=== PATIENT | male | born 1960 | race Caucasian/White ===

== ENCOUNTER → 2017-04-07 | Outpatient (CLI) | payer MEDICARE, OTHER ==
--- NOTE | 2017-04-07 20:02 | CT ---
EXAMINATION TYPE: CT brain wo con DATE OF EXAM: 04/07/2017 COMPARISON: NONE HISTORY: Fall with posterior head injury. Blurred vision, headache, dizziness and neck pain. CT DLP: 1240.63 mGycm Automated exposure control for dose reduction was used. FINDINGS: Ventricles have normal size. There is no mass effect nor midline shift. There is no sign of intracran ial hemorrhage. The calvarium is intact. There is large external occipital protuberance which is norm al variant. There is mucosal thickening in the sphenoid sinus. IMPRESSION: SPHENOID SINUSITIS. OTHERWISE NEGATIVE EXAM.
--- NOTE | 2017-04-07 20:05 | CT ---
EXAMINATION TYPE: CT soft tissue neck wo con DATE OF EXAM: 04/07/2017 HISTORY: Fall with posterior head injury. Blurred vision, headache, dizziness and neck pain. COMPARISON: NONE CT DLP: 759.55 mGycm. Automated Exposure Control for Dose Reduction was Utilized. TECHNIQUE: CT scan of the neck is performed , patient injected with mL of , axial images are obtaine d, coronal and sagittal reformatted images are reviewed. FINDINGS: The cervical vertebra have normal alignment. Prevertebral soft tissues appear normal. There is narrow ing at C5-6 disc space with mild spurring of the endplates. Subglottic trachea appears normal. Thyroi d gland appears normal. There is no evidence of cervical adenopathy. Parotid glands are symmetric. Abebe bmandibular salivary glands are symmetric. There is no sign of pharyngeal mass. There is mucosal thic kening in the sphenoid sinus. CONCLUSION: Spondylosis at C5-6. No fracture. Sphenoid sinusitis.
== END | disposition home or self-care (01) ==
LOC: RADCTMAIN 19:17
PROVIDERS: ATTEND Internal Medicine
DX: M47.812 Spondylosis without myelopathy or radiculopathy, cervical region (principal)
CPT/HCPCS: 70450; 70490

== ENCOUNTER → 2017-04-08 | Outpatient (CLI) | payer MEDICARE, OTHER ==
--- NOTE | 2017-04-08 11:57 | XR ---
EXAMINATION TYPE: XR Hip Complete LT DATE OF EXAM: 04/08/2017 COMPARISON: NONE HISTORY: Pain TECHNIQUE: 2 views submitted FINDINGS: Soft tissue ossification noted. Chronic appearing deformity of the femur. Arthropathy of the hip join ts. Chronic appearing deformity of the iliac wing. No definite acute fracture. IMPRESSION: 1. No definite acute fracture. Chronic appearing deformities of the femur. If clinical suspicion is h igh consider CAT scan given the deformity of the femur.
== END | disposition home or self-care (01) ==
LOC: RADXRMAIN 10:46
PROVIDERS: ATTEND Internal Medicine
DX: M21.852 Other specified acquired deformities of left thigh (principal); M25.552 Pain in left hip
CPT/HCPCS: 73502

== ENCOUNTER 2017-08-26 01:51 | Emergency (ER) | payer MEDICARE, OTHER ==
[2017-08-26 01:59] VITALS: RESP 18; TEMP 97.1
[2017-08-26 02:14] LABS: Appearance,Urine Clear (Clear); Bilirubin,Urine Negative (Negative); Blood,Urine Negative (Negative); Color,Urine Light Yellow; Glucose,Urine (UA) Negative (Negative); Ketones,Urine Negative (Negative); Leukocyte Esterase,Urine Negative (Negative); Nitrite,Urine Negative (Negative); Protein,Urine Negative (Negative); Specific Gravity,Urine 1.009 (1.001-1.035); Urobilinogen,Urine <2.0 mg/dL (<2.0)
[2017-08-26] MEDS ORDERED: HYDROmorphone 0.5 MG/0.5 ML SYRINGE IVP STA (02:17)
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
--- NOTE | 2017-08-26 02:57 | XR ---
EXAMINATION TYPE: XR KUB DATE OF EXAM: 08/26/2017 COMPARISON: NONE HISTORY: Back pain TECHNIQUE: 2 views FINDINGS: There is no sign of intestinal obstruction or pneumoperitoneum. Fecal pattern is normal. Varsha ng bases are clear. There are no pathologic calcifications over the kidneys. There is deformity of th e lateral left iliac crest consistent with previous surgery. IMPRESSION: Nonacute abdomen. Minimal thoracolumbar dextroscoliosis noted.
[2017-08-26 03:08] LABS: Basophils # (A) 0.1 k/uL (0-0.2); Basophils % (A) 1 %; Eosinophils # (A) 0.2 k/uL (0-0.7); Eosinophils % (A) 3 %; HCT 46.3 % (39.0-53.0); HGB 15.5 gm/dL (13.0-17.5); Lymphocytes # (A) 1.5 k/uL (1.0-4.8); Lymphocytes % (A) 17 %; MCH 28.9 pg (25.0-35.0); MCHC 33.4 g/dL (31.0-37.0); MCV 86.3 fL (80.0-100.0); Mean Platelet Volume 6.9; Monocytes # (A) 0.6 k/uL (0-1.0); Monocytes % (A) 7 %; Neutrophils % (A) 70 %; Platelet Count 368 k/uL (150-450); RBC 5.36 m/uL (4.30-5.90); RDW 12.1 % (11.5-15.5); WBC 8.6 k/uL (3.8-10.6)
[2017-08-26 03:10] LABS: ALT 43 U/L (21-72); AST 27 U/L (17-59); Albumin 4.4 g/dL (3.5-5.0); Alkaline Phosphatase 83 U/L (38-126); Anion Gap 13 mmol/L; Blood Urea Nitrogen 20 mg/dL (9-20); Carbon Dioxide 29 mmol/L (22-30); Chloride 99 mmol/L (98-107); Glucose 113 mg/dL (74-99); Potassium 4.8 mmol/L (3.5-5.1); Sodium 141 mmol/L (137-145); Total Bilirubin 0.4 mg/dL (0.2-1.3); Total Protein 7.8 g/dL (6.3-8.2)
--- NOTE | 2017-08-26 04:49 | CT ---
EXAM: CT Abdomen and Pelvis Without Intravenous Contrast CLINICAL HISTORY: ITS.REASON CT Reason: pain TECHNIQUE: Axial computed tomography images of the abdomen and pelvis without intravenous contrast. CTDI is 6.8 mGy and DLP is 357.3 mGy-cm. This CT exam was performed using one or more of the following dose reduction techniques: automated exposure control, adjustment of the mA and/or kV according to patient size, and/or use of iterative reconstruction technique. Coronal and sagittal reformatted images were created and reviewed. COMPARISON: No relevant prior studies available. FINDINGS: Lower thorax: Rectangular periphery opacity within the left lower lung lobe, consistent with a scar. ABDOMEN: Liver: Unremarkable. Gallbladder and bile ducts: Unremarkable. No calcified stones. No ductal dilation. Pancreas: Unremarkable. No ductal dilation. Spleen: Unremarkable. No splenomegaly. Adrenals: Unremarkable. No mass. Kidneys and ureters: Unremarkable. No obstructing stones. No hydronephrosis. Stomach and bowel: Unremarkable. No obstruction. No mucosal thickening. Appendix: Appendix not definitively seen. No regional inflammation identified in the right lower quadrant. PELVIS: Bladder: Circumflex printer urinary bladder wall thickening. No stones. Reproductive: Unremarkable as visualized. ABDOMEN and PELVIS: Intraperitoneal space: Unremarkable. No free air. No significant fluid collection. Bones/joints: Chronic, fragmented deformity to the left iliac bone. Bilateral degenerative changes to the sacroiliac joints. Mild scoliosis and degenerative disc changes. No acute fracture. No dislocation. Soft tissues: Unremarkable. Vasculature: Diffuse atherosclerosis. No abdominal aortic aneurysm. Lymph nodes: Unremarkable. No enlarged lymph nodes. IMPRESSION: 1. No evidence for nephrolithiasis or obstructive uropathy. 2. Circumferential urinary bladder wall thickening. Correlate for cystitis. 3. Other nonacute findings as above.
[2017-08-26] MEDS ORDERED: SULFAMETH-TMP DS STARTER PACK 2 TAB BTL PO STA (04:56)
[2017-08-26 05:08] VITALS: BP 129/89; PULSE 82
== END 2017-08-26 05:07 | disposition home or self-care (01) ==
LOC: EC 01:51
DX: N30.90 Cystitis, unspecified without hematuria (principal); G62.9 Polyneuropathy, unspecified; G25.81 Restless legs syndrome; Z87.891 Personal history of nicotine dependence; Z79.1 Long term (current) use of non-steroidal anti-inflammatories (NSAID); Z79.899 Other long term (current) drug therapy; Z88.6 Allergy status to analgesic agent; Z91.013 Allergy to seafood; Z91.030 Bee allergy status; Z91.048 Other nonmedicinal substance allergy status
CPT/HCPCS: 36415; 80053; 85025; 81003; 87086; 74018; 74176; 99284; 96374; J1170

== ENCOUNTER → 2017-11-05 | Outpatient (CLI) | payer MEDICARE, OTHER ==
--- NOTE | 2017-11-05 14:08 | XR ---
Lumbosacral spine HISTORY: Cough and low back pain 5 views of the cervical spine Correlation to CT abdomen pelvis 08/26/2017 There is a dextroscoliosis centered at L2, there is a rotatory component. Multilevel spondylosis is p resent. Lumbar vertebral bodies show preserved height and bone mineralization. No evident spondylolys is or spondylolisthesis. There is loss of disc height at intervertebral levels. Multilevel facet arth ropathy noted. IMPRESSION: Degenerative disc disease, scoliosis, facet arthropathy.
--- NOTE | 2017-11-05 14:17 | XR ---
EXAMINATION TYPE: XR chest 2V DATE OF EXAM: 11/05/2017 COMPARISON: NONE HISTORY: Shortness of breath TECHNIQUE: Frontal and lateral views of the chest are obtained on 3 images. FINDINGS: There is no focal air space opacity, pleural effusion, or pneumothorax seen. The cardiac silhouette size is within normal limits. There is a spinal curvature. Degenerative disc changes are present in the visualized spine. The osseous structures are intact. IMPRESSION: No acute cardiopulmonary process.
== END | disposition home or self-care (01) ==
LOC: RADXRMAIN 12:41
PROVIDERS: ATTEND Internal Medicine
DX: M51.36 Other intervertebral disc degeneration, lumbar region (principal); M46.96 Unspecified inflammatory spondylopathy, lumbar region; M41.9 Scoliosis, unspecified; R05 Cough
CPT/HCPCS: 71046; 72110

== ENCOUNTER → 2018-03-23 | Outpatient (CLI) | payer MEDICARE ==
--- NOTE | 2018-03-23 12:20 | US ---
EXAMINATION TYPE: US carotid duplex BILAT DATE OF EXAM: 03/23/2018 COMPARISON: NONE CLINICAL HISTORY: R29.6 FREQUENT FALLS. Frequent falls, pt states right side weakness and numbness EXAM MEASUREMENTS: RIGHT: Peak Systolic Velocity (PSV) cm/sec ----- Right CCA: 85.1 ----- Right ICA: 73.8 ----- Right ECA: 77.3 ICA/CCA ratio: 0.9 RIGHT: End Diastole cm/sec ----- Right CCA: 25.0 ----- Right ICA: 30.2 ----- Right ECA: 11.9 LEFT: Peak Systolic Velocity (PSV) cm/sec ----- Left CCA: 87.8 ----- Left ICA: 81.7 ----- Left ECA: 97.4 ICA/CCA ratio: 0.9 LEFT: End Diastole cm/sec ----- Left CCA: 25.8 ----- Left ICA: 31.9 ----- Left ECA: 13.8 VERTEBRALS (direction of flow): Right Vertebral: Antegrade Left Vertebral: Antegrade Rhythm: Normal No significant stenosis seen IMPRESSION: 1. No significant hemodynamic stenosis. Criteria for Assigning % of Stenosis / Diameter reduction (Estimation based on the indirect measurements of the internal carotid artery velocities (ICA PSV). 1. Normal (no stenosis)=ICA PSV < 125 cm/s: ratio < 2.0: ICA EDV<40 cm/s. 2. Less than 50% stenosis=ICA PSV < 125 cm/s: ratio < 2.0: ICA EDV<40 cm/s. 3. 50 to 69% stenosis=ICA PSV of 125 to 230 cm/s: ration 2.0 ? 4.0: ICA EDV 40-100 cm/s. 4. Greater than 70% stenosis to near occlusion= ICA PSV > 230 cm/s: ratio > 4.0: ICA EDV > 100 cm/s. 5. Near occlusion= ICA PSV velocities may be low or undetectable: variable ratio and ICA EDV. 6. Total occlusion=unable to detect flow.
== END | disposition home or self-care (01) ==
LOC: RADUSWWP 10:44
PROVIDERS: ATTEND Psychiatry & Neurology Neurology
DX: R29.6 Repeated falls (principal)
CPT/HCPCS: 93880

== ENCOUNTER → 2018-03-31 | Outpatient (CLI) | payer MEDICARE ==
--- NOTE | 2018-03-31 09:28 | XR ---
EXAMINATION TYPE: XR orbit detect foreign body DATE OF EXAM: 03/31/2018 COMPARISON: CT brain April 07, 2017 HISTORY: Pre-MRI clearance. Working with metal and/or welding in past. TECHNIQUE: Complete orbital series with Maldonado and Chantal frontal view lateral projection obtained. FINDINGS: No metallic intraorbital foreign body is seen to prevent MRI study. Findings correlate with CT. IMPRESSION: As above
--- NOTE | 2018-03-31 13:41 | MR ---
EXAMINATION TYPE: MR brain wo con DATE OF EXAM: 03/31/2018 COMPARISON: Correlation CT 04/07/2017 HISTORY: 58-year-old male with frequent fall TECHNIQUE: Multiplanar, multisequence images of the brain and brainstem were acquired without IV con trast. Diffusion weighted imaging is performed. FINDINGS: No evidence for acute infarction, hemorrhage, mass effect, midline shift, herniation, effacement of b idalmis cisterns, or extra-axial fluid collection. Rounded CSF space along the right median retrocerebellar region measuring 1.5 x 2.0 cm, possible arac hnoid cyst. No significant mass effect. The ventricles and sulci are age-appropriate with mild generalized atrophy. Major intracranial flow voids are intact. The right vertebral artery is dominant and shows early take off of the PICA near the V3/V4 junction. T2/FLAIR weighted sequences show minimal trace burden of right white matter change localized to the l eft paramedian frontal subcortical region with approximately 5 foci demonstrated. Midline structures demonstrate normal morphology. The craniocervical junction is normal. Stable dense ossification along the posterior midline outer table likely corresponding to enthesopath y as on the neck musculature insertion. Moderate mucosal thickening ethmoid air cells and mild within the maxillary sinuses. Globes are intac t. IMPRESSION: 1. Mild generalized atrophy. No acute intracranial abnormality seen. 2. Suspect a small 2.0 cm arachnoid cyst in the right paramedian retrocerebellar region. No significa nt mass effect. 3. Trace burden of T2 bright white matter change primarily located in the subcortical region of the l eft frontal lobe. Findings most likely related to changes of chronic small vessel ischemic disease. C orrelate to exclude chronic migraines. Demyelinating disease considered less likely. 4. Mild to moderate chronic ethmoid and maxillary sinus disease.
== END | disposition home or self-care (01) ==
LOC: RADMRIMAIN 08:58
PROVIDERS: ATTEND Psychiatry & Neurology Neurology
DX: G31.9 Degenerative disease of nervous system, unspecified (principal); R90.89 Other abnormal findings on diagnostic imaging of central nervous system; Z13.89 Encounter for screening for other disorder
CPT/HCPCS: 70030; 70551

== ENCOUNTER → 2018-04-30 | Outpatient (CLI) | payer MEDICARE ==
[2018-04-30 11:13] LABS: T4, Free (Free Thyroxine) 0.9 ng/dL (0.78-2.19)
[2018-05-04 09:20] LABS: Lyme IgG/IgM 0.1 Index
== END | disposition home or self-care (01) ==
LOC: LABWHC1 09:15
PROVIDERS: ATTEND Psychiatry & Neurology Neurology
DX: G62.9 Polyneuropathy, unspecified (principal); Z79.899 Other long term (current) drug therapy
CPT/HCPCS: 36415; 82306; 82607; 84439; 84443; 86618

== ENCOUNTER → 2018-05-17 | Outpatient (CLI) | payer MEDICARE ==
--- NOTE | 2018-05-18 13:58 | MR ---
EXAMINATION TYPE: MR cervical spine wo con DATE OF EXAM: 05/17/2018 COMPARISON: 01/27/2014 HISTORY: Chronic neck pain, pain/weakness in gisel upper extremities CONTRAST: Performed utilizing 0 mL intravenous Gadavist gadolinium contrast. TECHNIQUE: Multiplanar multiecho imaging on a 3.0 Allie magnet is performed through the cervical spin e. FINDINGS: The craniovertebral junction is normal. Vertebral body alignment is normal. C7-T1: No focal disc herniation or significant disc bulge is evident. No spinal canal stenosis or n eural foraminal stenosis is present. C6-7: Mild broad-based disc bulge is present with anterior thecal sac contact. Some cord contact may be present. No AP spinal canal stenosis is present. Neural foramen are patent.. C5-6: Broad-based disc bulge has mild anterior thecal sac flattening. This comes in close approximati on with spinal cord. Some endplate changes at the inferior endplate of C5 are associated with the dis c material. Uncovertebral joint protection is causing severe right and moderate left foraminal stenos is.. C4-5: There is a central subligamentous disc herniation with moderate anterior thecal sac compression . No cord contact or cord deformity is evident. No spinal canal stenosis is present. C3-4: Mild subligamentous disc extension beyond the endplate of C3 is present. No AP spinal canal giuseppe nosis present. No cord contact is evident. Neural foramen are patent.. C2-3: There is some central subligamentous disc extension and sagittal plane. No cord contact is evid ent. Significant anterior thecal sac compression is not evident. Neural foramen are patent.. COMPARISON: The C4-5 subligamentous disc extension is increased over the interval. Remaining discs ap pear unchanged. IMPRESSIONS: 1. Increase in subligamentous C4-5 disc herniation. 2. Remaining disc changes are stable from comparison. 3. Foraminal narrowing due to uncovertebral joint hypertrophy discussed above.
== END ==
LOC: RADMRIMAIN 18:45
PROVIDERS: ATTEND Psychiatry & Neurology Neurology
DX: M99.71 Connective tissue and disc stenosis of intervertebral foramina of cervical region (principal); M50.221 Other cervical disc displacement at C4-C5 level; M25.80 Other specified joint disorders, unspecified joint
CPT/HCPCS: 72141

== ENCOUNTER → 2018-06-02 | Outpatient (CLI) | payer MEDICARE ==
[2018-06-02 18:57] LABS: Rheumatoid Factor 20 IU/mL (0-15)
[2018-06-02 19:26] LABS: Folate, Serum 20.4 ng/mL
== END | disposition home or self-care (01) ==
LOC: LABWHC1 12:05
PROVIDERS: ATTEND Psychiatry & Neurology Neurology
DX: G62.9 Polyneuropathy, unspecified (principal)
CPT/HCPCS: 36415; 82746; 86038; 86431

== ENCOUNTER → 2018-06-04 | Outpatient (CLI) | payer MEDICARE ==
[2018-06-04 15:44] LABS: Protein, Total 6.8 g/dL (6.2-8.2)
[2018-06-04 19:34] LABS: Hemoglobin A1C 5.4 % (4.0-6.0)
[2018-06-08 12:19] LABS: Gamma Globulin 0.89 g/dL (0.70-1.50)
== END | disposition home or self-care (01) ==
LOC: LABWHC1 10:45
PROVIDERS: ATTEND Psychiatry & Neurology Neurology
DX: G60.3 Idiopathic progressive neuropathy (principal); Z79.891 Long term (current) use of opiate analgesic
CPT/HCPCS: 36415; 83036; 84165

== ENCOUNTER → 2019-08-16 | Outpatient (CLI) | payer MEDICARE ==
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
--- NOTE | 2019-08-16 13:50 | XR ---
Lumbar spine HISTORY: Low back pain 3 views the lumbar spine, correlation to prior exam 11/05/2017 There is dextro scoliosis centered at L2 as on prior. There is multilevel spondylosis, there is a rot atory component. Lumbar vertebral bodies show stable height and bone mineralization. Some loss of dis c height at intervertebral levels especially L3-4 is noted. Sclerosis present in the posterior elemen ts. Vascular calcifications present anterior to the lumbar spine. IMPRESSION: Degenerative disc disease, facet arthropathy, scoliosis.
--- NOTE | 2019-08-16 13:53 | XR ---
Cervical spine HISTORY: Neck pain 6 views of the cervical spine There is multilevel spondylosis. Minimal retrolisthesis grade 1 C4-5, C5-6. There is loss of disc hei ght at intervertebral levels especially C4-5, C5-6 and C6-7. Multilevel facet arthropathy changes are present. Cervical vertebral bodies show preserved height. Foraminal encroachment is present at C3-4 on the right, C5-6 on the left. Foramina are not well defined in the lower aspect of the cervical spi ne on the right. Probable vascular calcifications present within the carotid arteries. Postop change noted to the mandible. IMPRESSION: Degenerative disc disease, facet arthropathy.
== END | disposition home or self-care (01) ==
LOC: RADXRMAIN 10:20
PROVIDERS: ATTEND Internal Medicine
DX: M50.30 Other cervical disc degeneration, unspecified cervical region (principal); M51.36 Other intervertebral disc degeneration, lumbar region; M41.86 Other forms of scoliosis, lumbar region; M46.92 Unspecified inflammatory spondylopathy, cervical region; M46.96 Unspecified inflammatory spondylopathy, lumbar region; M25.551 Pain in right hip; M25.552 Pain in left hip; Z87.828 Personal history of other (healed) physical injury and trauma
CPT/HCPCS: 72050; 72100; 73521

== ENCOUNTER → 2019-08-30 | Outpatient (CLI) | payer MEDICARE ==
--- NOTE | 2019-08-30 16:02 | MR ---
EXAMINATION TYPE: MR brain wo/w con DATE OF EXAM: 08/30/2019 COMPARISON: 03/31/2018 HISTORY: Brain tumor CONTRAST: Performed utilizing 8 mL intravenous Gadavist gadolinium contrast. TECHNIQUE: Multiplanar, multiecho imaging on a 3.0 Allie magnet is performed through the brain. Stud y is performed within 24 hours of arrival to the hospital. The craniovertebral junction is normal. The pituitary is normal. Diffusion-weighted imaging is performed. No abnormal hyperintensity is present to suggest an acute i ntracranial infarct or acute ischemic change. Normal vascular flow voids are present. Optic chiasm is visualized appears unremarkable. No suspicious masses are evident. The suspected small retrocerebellar arachnoid cyst is stable. Ventricles and sulci are appropriate for the patient age. IMPRESSIONS: 1. No suspicious changes to suggest a suspicious mass. Suspected arachnoid cyst in the posterior cere bellar region is stable.
== END | disposition home or self-care (01) ==
LOC: RADMRIMAIN 08:01
PROVIDERS: ATTEND Internal Medicine
DX: Z09 Encounter for follow-up examination after completed treatment for conditions other than malignant neoplasm (principal); Z86.011 Personal history of benign neoplasm of the brain
CPT/HCPCS: 70553; A9585

== ENCOUNTER → 2019-09-19 | Outpatient (CLI) | payer MEDICARE ==
--- NOTE | 2019-09-19 12:59 | MR ---
EXAMINATION TYPE: MR cervical spine wo con DATE OF EXAM: 09/19/2019 COMPARISON: 05/17/2018 HISTORY: herniated discs TECHNIQUE: Multiplanar, multisequence images of the cervical spine were acquired. FINDINGS: There is grade 1 anterolisthesis of C3 on C4 seen on the prior. There is minimal retrolisth esis of C4 on C5 and C5 on C6. Multilevel disc desiccation is seen. Cervical spinal cord signal is gr ossly unremarkable. C2-C3: There is a right eccentric broad-based disc bulge without spinal canal stenosis or neural fora christofer narrowing. C3-C4: Uncovertebral hypertrophy and a posterior central disc osteophyte complexes are seen resulting in mild left neural foraminal narrowing. Spinal canal and right neuroforamen are patent. C4-C5: There is redemonstration of a central disc herniation superimposed on a broad-based disc bulge creating mild spinal canal stenosis in combination with facet arthropathy and ligamentum flavum greenfield ling. Uncovertebral hypertrophy is also seen creating mild left neural foraminal narrowing. Right varsha roforamen is patent. Very small Tarlov cyst is seen on the right. Spinal canal stenosis is new from t he prior. C5-C6: There is uncovertebral hypertrophy and facet arthropathy with a broad-based disc bulge and andrei tral disc osteophyte complex. This causes severe right neural foraminal narrowing and moderate left n eural foraminal narrowing as well as mild spinal canal stenosis. Ligamentum flavum buckling is also s een. C6-C7: There is redemonstration of a broad-based disc bulge with left-sided facet arthropathy and unc overtebral hypertrophy creating mild left neural foraminal narrowing. There is also effacement of the ventral subarachnoid space resulting in very mild spinal canal stenosis. Right neural foramen is pat ent. C7-T1: Disc desiccation without spinal canal stenosis or neural foraminal narrowing. No focal disc he rniation. IMPRESSION: 1. Progression of degenerative disc disease and similar central disc herniation at C4-C5 with new mil d spinal canal stenosis. Mild left neural foraminal narrowing is similar to the prior. 2. Degenerative disc disease at C5-C6 has also progressed with mild spinal canal stenosis, severe rig ht neural foraminal narrowing and moderate left neural foraminal narrowing. 3. Very mild spinal canal stenosis at C6-C7 as result of a broad-based disc bulge and facet arthropat hy. 4. Overall moderate degenerative disc disease of the cervical spine resulting in variable degrees of neural foraminal narrowing as detailed above. 5. Multilevel malalignment of the cervical spine is likely on degenerative basis of and similar to kaylin frances prior.
== END | disposition home or self-care (01) ==
LOC: RADMRIMAIN 12:08
PROVIDERS: ATTEND Internal Medicine
DX: M48.02 Spinal stenosis, cervical region (principal); M50.221 Other cervical disc displacement at C4-C5 level; M50.30 Other cervical disc degeneration, unspecified cervical region; M47.812 Spondylosis without myelopathy or radiculopathy, cervical region
CPT/HCPCS: 72141

== ENCOUNTER 2021-04-02 09:13 | Day surgery (SDC) | payer MEDICARE, OTHER ==
[2021-03-28 09:01] VITALS: BMI 25.0
[~2021-04-02 09:13] MED LIST: LACTATED RINGERS 1,000 ML IV SCH
[2021-04-02 09:47] VITALS: RESP 16; TEMP 97.3
[2021-04-02] MEDS ORDERED: LIDOCAINE 1% (10MG/ML) FOR IV START INTRADERMA ONE (09:47)
[2021-04-02] MEDS ORDERED: PROPOFOL 10 MG/ML 20 ML VIAL IV ONE (10:14)
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
--- NOTE | 2021-04-02 10:34 | P.PCN ---
Date of Procedure: 04/02/21 Procedure(s) Performed: PREOPERATIVE DIAGNOSIS: Screening, history of polyps POSTOPERATIVE DIAGNOSIS: Rectal polyp PROCEDURE: Colonoscopy with snare polypectomy ANESTHESIA: MAC SURGEON: Paul Wick M.D. SPECIMENS: Rectal polyp ENDOSCOPIC PROCEDURE: The patient was placed on the endoscopy table in the left decubitus position. The Olympus colonoscope was inserted into the anus and passed under direct visualization to the base of the cecum. The appendiceal orifice was visualized. From that point the scope was slowly withdrawn inspecting all surfaces carefully. There were no neoplastic inflammatory or polypoid lesions throughout the cecum, ascending, transverse, descending, and sigmoid colon. In the rectum a small polyp was seen and removed using the snare with cautery technique. The remainder of the rectum was normal. There was no visible diverticulosis. Digital rectal examination was normal. The patient was taken to the recovery room in stable condition per anesthesia guidelines. RECOMMENDATIONS: Await biopsy results. Anticipate follow-up colonoscopy 7 years.
[2021-04-02 10:57] VITALS: BP 98/70; PULSE 72
== END 2021-04-02 11:21 | disposition home or self-care (01) ==
LOC: ORWHC2ENDO 09:13
PROVIDERS: ATTEND Surgery
DX: Z12.11 Encounter for screening for malignant neoplasm of colon (principal); K62.1 Rectal polyp; I10 Essential (primary) hypertension; I25.2 Old myocardial infarction; M19.90 Unspecified osteoarthritis, unspecified site; H91.90 Unspecified hearing loss, unspecified ear; Z87.891 Personal history of nicotine dependence; I25.10 Atherosclerotic heart disease of native coronary artery without angina pectoris; Z98.61 Coronary angioplasty status; Z79.899 Other long term (current) drug therapy
CPT/HCPCS: 88305; 45385; J2704

== ENCOUNTER → 2021-04-05 | Outpatient (CLI) | payer MEDICARE, OTHER ==
[2021-04-05 19:21] LABS: T4, Free (Free Thyroxine) 1.2 ng/dL (0.80-1.80)
== END | disposition home or self-care (01) ==
LOC: LABWHC1 08:04
PROVIDERS: ATTEND Psychiatry & Neurology Neurology
DX: I69.911 Memory deficit following unspecified cerebrovascular disease (principal)
CPT/HCPCS: 36415; 82607; 84425; 84439; 84443; 84481

== ENCOUNTER → 2021-05-02 | Outpatient (CLI) | payer MEDICARE, OTHER ==
--- NOTE | 2021-05-02 14:49 | MR ---
MRI brain without contrast HISTORY: R 26.9 Multiplanar multisequence imaging obtained through the brain, correlation with prior brain MRI Mar there is no hemorrhage or hydrocephalus. There are expected vascular flow voids. Brain signal is stab le. Some minimal subcortical hyperintensity in the left frontal lobe is again noted. The orbits shows stable appearance. Cerebellopontine angles are symmetric. Midline structures show stable appearance. Mild ethmoid sinus disease changes, maxillary sinus inflammatory change noted similar to prior exam. IMPRESSION: Stable exam, no acute abnormality is evident.
== END | disposition home or self-care (01) ==
LOC: RADMRIMAIN 08:14
PROVIDERS: ATTEND Psychiatry & Neurology Neurology
DX: R26.9 Unspecified abnormalities of gait and mobility (principal)
CPT/HCPCS: 70551

== ENCOUNTER 2021-05-14 10:59 | Emergency (ER) | payer MEDICARE, OTHER ==
[2021-05-14 11:08] VITALS: BP 143/89; PULSE 80; RESP 18; TEMP 97.5
[2021-05-14 12:13] LABS: Appearance,Urine Clear (Clear); Bilirubin,Urine Negative (Negative); Blood,Urine Negative (Negative); Color,Urine Light Yellow; Glucose,Urine (UA) Negative (Negative); Ketones,Urine Negative (Negative); Leukocyte Esterase,Urine Negative (Negative); Nitrite,Urine Negative (Negative); Protein,Urine Negative (Negative); Specific Gravity,Urine 1.005 (1.001-1.035); Urobilinogen,Urine <2.0 mg/dL (<2.0)
[2021-05-14 12:16] LABS: Basophils % (A) 1 %; Eosinophils # (A) 0.1 k/uL (0-0.7); Eosinophils % (A) 2 %; HCT 43.7 % (39.0-53.0); HGB 14.8 gm/dL (13.0-17.5); Lymphocytes # (A) 1.3 k/uL (1.0-4.8); Lymphocytes % (A) 25 %; MCH 28.9 pg (25.0-35.0); MCHC 33.7 g/dL (31.0-37.0); MCV 85.6 fL (80.0-100.0); Mean Platelet Volume 7.9; Monocytes # (A) 0.5 k/uL (0-1.0); Monocytes % (A) 10 %; Neutrophils # (A) 3.1 k/uL (1.3-7.7); Neutrophils % (A) 60 %; Platelet Count 365 k/uL (150-450); RBC 5.11 m/uL (4.30-5.90); RDW 13.8 % (11.5-15.5); WBC 5.2 k/uL (3.8-10.6)
[2021-05-14 12:30] LABS: Prothrombin Time 10.3 sec (9.0-12.0)
[2021-05-14 12:33] LABS: ALT 20 U/L (4-49); AST 24 U/L (17-59); African American GFR (CKD) >90 (>60 ml/min/1.73 sqM); Alkaline Phosphatase 55 U/L (38-126); Anion Gap 8 mmol/L; Blood Urea Nitrogen 9 mg/dL (9-20); Calcium 9.3 mg/dL (8.4-10.2); Carbon Dioxide 22 mmol/L (22-30); Chloride 110 mmol/L (98-107); Glucose 99 mg/dL (74-99); Magnesium 2.1 mg/dL (1.6-2.3); Non-African American GFR(CKD) >90 (>60 ml/min/1.73 sqM); Potassium 4.2 mmol/L (3.5-5.1); Sodium 140 mmol/L (137-145); Total Bilirubin 0.6 mg/dL (0.2-1.3); Total Protein 6.8 g/dL (6.3-8.2)
--- NOTE | 2021-05-14 12:45 | XR ---
EXAMINATION TYPE: XR chest 2V DATE OF EXAM: 05/14/2021 COMPARISON: Chest x-ray 11/05/2017 HISTORY: Weakness, lethargy TECHNIQUE: Frontal and lateral views of the chest are obtained. FINDINGS: There is no focal air space opacity, pleural effusion, or pneumothorax seen. The cardiac silhouette size is within normal limits. There are overlying leads. The osseous structures are intac t. IMPRESSION: No acute cardiopulmonary process.
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
== END 2021-05-14 14:38 | disposition home or self-care (01) ==
LOC: EC 10:59
DX: R53.1 Weakness (principal); G98.8 Other disorders of nervous system; I10 Essential (primary) hypertension; I25.2 Old myocardial infarction; M19.90 Unspecified osteoarthritis, unspecified site; Z87.891 Personal history of nicotine dependence; Z79.899 Other long term (current) drug therapy; Z20.822 Contact with and (suspected) exposure to COVID-19; Z88.6 Allergy status to analgesic agent; Z88.8 Allergy status to other drugs, medicaments and biological substances; Z91.018 Allergy to other foods; Z91.013 Allergy to seafood
CPT/HCPCS: 36415; 71046; 80053; 81003; 83605; 83735; 84484; 85025; 85610; 85730; 87635; 93005; 99285

== ENCOUNTER → 2022-06-25 | Outpatient (CLI) | payer MEDICARE, OTHER ==
--- NOTE | 2022-06-25 08:32 | XR ---
EXAMINATION TYPE: XR chest 2V DATE OF EXAM: 06/25/2022 COMPARISON: 05/14/2021 TECHNIQUE: PA and lateral views submitted. HISTORY: Shortness of breath FINDINGS: The lungs are clear and there is no pneumothorax, pleural effusion, or focal pneumonia. Hypertrophi c and degenerative changes in spine. Hyperinflation of the lungs. IMPRESSION: 1. No acute process. Related for COPD.
--- NOTE | 2022-06-25 09:27 | CT ---
EXAMINATION TYPE: CT abdomen pelvis wo con DATE OF EXAM: 06/25/2022 HISTORY: constipation. Diverticulosis without perforation. CT DLP: 328.20 mGycm. Automated Exposure Control for Dose Reduction was Utilized. TECHNIQUE: CT scan of the abdomen and pelvis is performed with oral but without IV contrast. COMPARISON: Prior CT abdomen and pelvis August 26, 2017 FINDINGS: Within the limitations of a non-contrast study, the following observations are made. LUNG BASES: No significant abnormality is appreciated. LIVER/GB: No significant abnormality is appreciated. PANCREAS: No significant abnormality is seen. SPLEEN: No significant abnormality is seen. ADRENALS: No significant abnormality is seen. KIDNEYS: No renal stones or hydronephrosis is present bilaterally. No intraluminal calculus in the bl adder. BOWEL: Oral contrast reaches level of the rectum. Moderate to borderline severe rectal fecal prominen ce. No suspicious small or large bowel dilatation. Mild to moderate wall thickening proximal to mid s igmoid colon in the left pelvis. No significant diverticulosis or CT evidence for acute diverticuliti s. GENITAL ORGANS: Prostate gland upper limits of normal in size. Calcified bilateral vas deferens redem onstrated. LYMPH NODES: No greater than 1cm abdominal or pelvic lymph nodes are appreciated. OSSEOUS STRUCTURES: Dextroconvex scoliosis centered at L2 level is redemonstrated. OTHER: No significant additional abnormality is seen. IMPRESSION: Moderate to severe rectal fecal stasis and/or constipation. No bowel obstruction. Possibl e mild to moderate focal acute colitis involving the distal left colon greatest in prominence involvi ng the proximal to mid sigmoid colon in the left pelvis. Correlate clinically. Length of involvement unlikely to reflect neoplasm but should be correlated with colonoscopy to exclude. No significant col onic diverticulosis or CT evidence for acute diverticulitis.
== END | disposition home or self-care (01) ==
LOC: RADCTMAIN 08:04
PROVIDERS: ATTEND Surgery
DX: K57.32 Diverticulitis of large intestine without perforation or abscess without bleeding (principal)
CPT/HCPCS: 71046; 74176

== ENCOUNTER → 2022-11-24 | Outpatient (CLI) | payer MEDICARE, OTHER ==
--- NOTE | 2022-11-24 11:32 | MR ---
EXAMINATION TYPE: MR brain wo/w con DATE OF EXAM: 11/24/2022 COMPARISON: 08/30/2019, 05/02/2021 HISTORY: Altered mental status TECHNIQUE: Multiplanar, multisequence images of the brain and brainstem is performed without and with IV contras t, utilizing 8 mL intravenous Gadavist . FINDINGS: Diffusion weighted images demonstrate no evidence of a recent infarct or other diffusion ab normality. There is prominent bony signal along the posterior margin of the lower occiput which is c ompatible with previous CT finding related to an area of hyperostosis. There is mild generalized degenerative change. There are a few scattered areas of focal abnormal sign al within the white matter greater on the left. The largest measures 5 mm. Findings are nonspecific b ut most typical of remote white matter ischemia and appear stable relative to prior exam. Midline structures demonstrate normal morphology. The craniocervical junction appears within normal limits. Post contrast images demonstrate no abnormal enhancement. It does appear to be a 5 mm area o f reduced enhancement involving the pituitary gland. The dural venous sinuses appear patent. There ar e changes of mild chronic sinusitis. Orbits are symmetric. Small posterior fossa prominent cisterna m agna favored over arachnoid cyst. IMPRESSION: 1. Stable minimal nonspecific white matter change favored to be remote microvascular ischemic white m atter change. 2. Findings are suspicious for a pituitary microadenoma measuring 3 mm
== END | disposition home or self-care (01) ==
LOC: RADMRIMAIN 09:43
PROVIDERS: ATTEND Internal Medicine
DX: G31.84 Mild cognitive impairment of uncertain or unknown etiology (principal); G93.89 Other specified disorders of brain
CPT/HCPCS: 70553; A9585

== ENCOUNTER → 2023-01-06 | Outpatient (CLI) | payer MEDICARE, OTHER | END | disposition home or self-care (01) | LOC: LABWHC1 16:05 | PROVIDERS: ATTEND Urology | DX: R97.20 Elevated prostate specific antigen [PSA] (principal) | CPT/HCPCS: 36415; 84153 ==

== ENCOUNTER → 2023-09-16 | Outpatient (CLI) | payer MEDICARE ==
--- NOTE | 2023-09-16 11:38 | XR ---
EXAMINATION TYPE: XR chest 2V DATE OF EXAM: 09/16/2023 COMPARISON: 06/25/2022. HISTORY: Shortness of breath. TECHNIQUE: Frontal and lateral views of the chest are obtained. FINDINGS: There is no focal air space opacity, pleural effusion, or pneumothorax seen. The cardiac silhouette size is within normal limits. The osseous structures are intact. IMPRESSION: No acute cardiopulmonary process.
== END | disposition home or self-care (01) ==
LOC: RADXRMAIN 11:20
PROVIDERS: ATTEND Internal Medicine
DX: R06.02 Shortness of breath (principal); R63.4 Abnormal weight loss
CPT/HCPCS: 71046

== ENCOUNTER 2024-09-26 10:41 | Emergency (ER) | payer MEDICARE ==
[2024-09-26 10:49] VITALS: TEMP 98
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
--- NOTE | 2024-09-26 11:40 | XR ---
EXAMINATION TYPE: XR forearm RT DATE OF EXAM: 09/26/2024 11:36 AM COMPARISON: None CLINICAL INDICATION: Male, 64 years old with history of Tablesaw laceration; PHH, pain TECHNIQUE: XR forearm RT; forearm was examined in AP and lateral projections. FINDINGS: Soft tissue injury to the forearm with bandage in place no evidence for radiopaque foreign body or fracture. No acute osseous pathology, soft tissue swelling or joint dislocations are seen. IMPRESSION: Soft tissue injury without evidence of radiopaque foreign body. No evidence of acute fracture. [facility], , 09/26/2024 11:38 AM
[2024-09-26] MEDS: LIDOCAINE 1%-EPI 1:100,000 20 ML VIAL SQ STA (12:46)
[2024-09-26] MEDS: DIPH,PERTUS(ACELL)TETVAC-LF 0.5 ML VIAL IM ONE (12:46)
[2024-09-26 13:27] VITALS: BP 116/68; PULSE 56; RESP 18
== END 2024-09-26 13:26 | disposition home or self-care (01) ==
LOC: EC 10:41
DX: S51.811A Laceration without foreign body of right forearm, initial encounter (principal); Z87.891 Personal history of nicotine dependence; Z88.6 Allergy status to analgesic agent; Z91.030 Bee allergy status; Z91.013 Allergy to seafood; Z91.041 Radiographic dye allergy status; Z23 Encounter for immunization; W31.2XXA Contact with powered woodworking and forming machines, initial encounter
CPT/HCPCS: 12002; 90471; 90715; 99283